=== PATIENT | female | born 1970 | race Caucasian/White ===

== ENCOUNTER 2017-02-07 08:34 | Emergency (ER) | payer BC ==
[2017-02-07] MEDS ORDERED: Nitroglycerin TAB 0.4 MG* 0.4 MG TAB SL ONE (09:06)
[2017-02-07] MEDS ORDERED: NS 0.9% 1000 ML* 1,000 ML IV SCH (09:15)
--- NOTE | 2017-02-07 09:30 | RAD ---
INDICATION: Chest pain COMPARISON: None TECHNIQUE: An AP portable view obtained at 0910 hours is submitted. FINDINGS: Bones/Soft Tissues: There are no acute bony findings. Cardiomediastinal: The cardiomediastinal silhouette is normal. Lungs: There are no infiltrates. Pleura: There are no pleural effusions. Other: None IMPRESSION: NO ACTIVE DISEASE
[2017-02-07 09:35] LABS: Hematocrit 46 % (35-47); Hemoglobin 15.4 g/dl (12.0-16.0); Mean Corpuscular HGB Conc 34 g/dl (31-36); Mean Corpuscular Hemoglobin 30 pg (27-31); Mean Corpuscular Volume 89 fL (80-97); Mean Platelet Volume 9 um3 (7.4-10.4); Red Blood Count 5.16 10^6/ul (4.0-5.4); Red Cell Distribution Width 13 % (10.5-15); White Blood Count 5.8 10^3/ul (3.5-10.8)
[2017-02-07 09:57] LABS: ALT 20 U/L (7-52); Albumin 4.9 g/dL (3.2-5.2); Alkaline Phosphatase 73 U/L (34-104); BUN/Creatinine Ratio 25.6 (8-20); Blood Urea Nitrogen 21 mg/dL (6-24); C Reactive Protein < 1.00 mg/L (< 5.00); CO2 Carbon Dioxide 25 mmol/L (22-32); Calcium 9.8 mg/dL (8.6-10.3); Chloride 104 mmol/L (101-111); Creatine Kinase 95 U/L (10-223); EGFR African American 96.5 (>60); EGFR Non-African American 75.1 (>60); Glucose 103 mg/dL (70-100); Lipase 19 U/L (11.0-82.0); Sodium 136 mmol/L (133-145); Total Protein 7.9 g/dL (6.4-8.9)
[2017-02-07 10:24] LABS: TSH (Thyroid Stimulating Horm) 2.67 mcIU/mL (0.34-5.60)
[2017-02-07 10:40] LABS: Urine Bilirubin Negative (Negative); Urine Glucose Negative (Negative); Urine Nitrite Negative (Negative)
--- NOTE | 2017-02-07 12:57 | ED ---
Citlali Roach Claudia, scribed for Aryan Perez MD on 02/07/17 at 0910 . HPI Chest Pain - HPI Summary HPI Summary: 46 year old female presents to the ED with mid-sternal, left anterior CP. Pt notes sudden onset this am around 800am when she was lifting recycling. Pt denies nausea, SOB, skin diaphoresis, fever, chills, abd pain. Pt notes the pain as 5/10. Pt is unable to describe the character of the pain. Pt notes deep breaths aggravate the pain and there is no alleviating factors. She notes that she is unable to make the pain worse by pressing on her chest. She denies calf pain and PMHx of DVT or PE. Pt also admits to chronic LEWIS which she had this am and she took 2 aspirins, pt also notes chronic tinnitus which has gotten louder within the last week. She notes PMHx of IBS and takes peppermint oil daily which she took this am. She also notes HTN during when she was 32 years old but no Rx for HTN since due to adverse rxn/allergies. Pt notes no Dx of HTN. Pt notes she has adverse xn to lots of medications which gives her a sense of fear. - History of Current Complaint Chief Complaint: EDChestPainROMI Time Seen by Provider: 02/07/17 08:49 Hx Obtained From: Patient Onset/Duration: Started Minutes Ago - about 800am today, Still Present Timing: Constant Pain Intensity: 5 Pain Scale Used: 0-10 Numeric Chest Pain Location: Mid Sternal, Left Anterior Character: Other: - unable to describe Aggravating Factor(s): Deep Breaths Alleviating Factor(s): Nothing Associated Signs and Symptoms: Positive: Chest Pain. Negative: Shortness of Breath, Fever, Chills, Diaphoresis, Nausea, Abdominal Pain - Allergy/Home Medications Allergies/Adverse Reactions: Allergies Allergy/AdvReac Type Severity Reaction Status Date / Time Cheese Allergy MIGRAINES Verified 07/18/16 09:13 Ibuprofen Allergy Nausea Verified 07/18/16 09:13 ALL BLOOD PRESSURE MEDICATION Allergy Unknown Uncoded 07/18/16 09:13 Reaction Details ARTIFICIAL HORMONES Allergy MIGRAINES Uncoded 07/18/16 09:13 BLOOD PRESSURE MED Allergy Palpitation Uncoded 07/18/16 09:13 s CHEMICALS Allergy Unknown Uncoded 07/18/16 09:13 Reaction Details PMH/Surg Hx/FS Hx/Imm Hx Previously Healthy: Yes Endocrine/Hematology History: Denies: Hx Diabetes Cardiovascular History: Reports: Hx Hypertension - ELEVATED WHEN IN A HEALTH CARE SETTING-ANXIETY INCREASES WHEN TAKING BP- Denies: Hx Pacemaker/ICD GI History: Reports: Hx Irritable Bowel - ON PEPPERMINT FOR History: Denies: Hx Renal Disease Musculoskeletal History: Reports: Hx Arthritis - HAND, Hx Tendonitis - HX OF Sensory History: Denies: Hx Contacts or Glasses, Hx Hearing Aid Opthamlomology History: Denies: Hx Contacts or Glasses Neurological History: Reports: Hx Migraine - INDUCED BY HORMONES-TREATS WITH TYLENOL AND CODEINE PRN Psychiatric History: Reports: Hx Anxiety - ONLY WHEN BLOOD PRESSURE BEING TAKEN Denies: Hx Panic Disorder - Cancer History Hx Chemotherapy: No Hx Radiation Therapy: No - Surgical History Surgery Procedure, Year, and Place: 2 COLONOSCOPIES. ENDOSCOPY Hx Anesthesia Reactions: No Infectious Disease History: No Infectious Disease History: Denies: Traveled Outside the [place] in Last 30 Days - Family History Family History: NO FHX OF BREAST CA - Social History Occupation: Unemployed Lives: With Family Alcohol Use: None Substance Use Type: Reports: None Smoking Status (MU): Former Smoker Amount Used/How Often: ? PPD X 9 YEARS Review of Systems Constitutional: Negative Negative: Fever, Chills, Skin Diaphoresis Eyes: Negative ENT: Negative Positive: Chest Pain Negative: Shortness Of Breath Negative: Abdominal Pain, Nausea Genitourinary: Negative Musculoskeletal: Negative Skin: Negative Neurological: Negative Psychological: Normal All Other Systems Reviewed And Are Negative: Yes Physical Exam Triage Information Reviewed: Yes Vital Signs On Initial Exam: Initial Vitals Temp Pulse Resp BP Pulse Ox 96.4 F 105 20 173/105 100 02/07/17 08:35 02/07/17 08:35 02/07/17 08:35 02/07/17 08:35 02/07/17 08:35 Vital Signs Reviewed: Yes Appearance: Positive: Well-Appearing, No Pain Distress Skin: Positive: Warm, Skin Color Reflects Adequate Perfusion, Dry Head/Face: Positive: Normal Head/Face Inspection Eyes: Positive: EOMI, CHANTALE ENT: Positive: Normal ENT inspection Neck: Positive: Supple, Nontender Respiratory/Lung Sounds: Positive: Clear to Auscultation, Breath Sounds Present Cardiovascular: Positive: RRR Abdomen Description: Positive: Nontender, Soft Musculoskeletal: Positive: Normal, Strength/ROM Intact Neurological: Positive: Normal, Sensory/Motor Intact, Alert, Oriented to Person Place, Time Psychiatric: Positive: Anxious - [place] Coma Scale Coma Scale Total: 15 Diagnostics - Vital Signs Vital Signs Temp Pulse Resp BP Pulse Ox 02/07/17 08:51 82 14 170/107 100 02/07/17 08:46 96.4 F 76 18 170/107 100 02/07/17 08:35 96.4 F 105 20 173/105 100 - Laboratory Lab Results: Lab Results 02/07/17 02/07/17 02/07/17 Range/Units 09:20 09:20 09:20 WBC 5.8 (3.5-10.8) 10^3/ul RBC 5.16 (4.0-5.4) 10^6/ul Hgb 15.4 (12.0-16.0) g/dl Hct 46 (35-47) % MCV 89 (80-97) fL MCH 30 (27-31) pg MCHC 34 (31-36) g/dl RDW 13 (10.5-15) % Plt Count 182 (150-450) 10^3/ul MPV 9 (7.4-10.4) um3 Neut % (Auto) 66.6 (38-83) % Lymph % (Auto) 24.0 L (25-47) % [place] % (Auto) 6.9 (1-9) % Eos % (Auto) 1.8 (0-6) % Baso % (Auto) 0.7 (0-2) % Absolute Neuts (auto) 3.9 (1.5-7.7) 10^3/ul Absolute Lymphs (auto) 1.4 (1.0-4.8) 10^3/ul Absolute Monos (auto) 0.4 (0-0.8) 10^3/ul Absolute Eos (auto) 0.1 (0-0.6) 10^3/ul Absolute Basos (auto) 0 (0-0.2) 10^3/ul Absolute Nucleated RBC 0.01 10^3/ul Nucleated RBC % 0.1 INR (Anticoag Therapy) 0.81 L (0.89-1.11) APTT 27.9 (26.0-36.3) seconds D-Dimer, Quantitative < 200 (Less Than 230) ng/mL Sodium 136 (133-145) mmol/L Potassium TNP Chloride 104 (101-111) mmol/L Carbon Dioxide 25 (22-32) mmol/L Anion Gap TNP BUN 21 (6-24) mg/dL Creatinine 0.82 (0.51-0.95) mg/dL Est GFR ( Amer) 96.5 (>60) Est GFR (Non-Af Amer) 75.1 (>60) BUN/Creatinine Ratio 25.6 H (8-20) Glucose 103 H (70-100) mg/dL Lactic Acid (0.5-2.0) mmol/L Calcium 9.8 (8.6-10.3) mg/dL Magnesium TNP Total Bilirubin 0.30 (0.2-1.0) mg/dL AST TNP ALT 20 (7-52) U/L Alkaline Phosphatase 73 (34-104) U/L Total Creatine Kinase 95 (10-223) U/L CK-MB (CK-2) 1.5 (0.6-6.3) ng/mL Troponin I 0.00 (<0.04) ng/mL C-Reactive Protein < 1.00 (< 5.00) mg/L Total Protein 7.9 (6.4-8.9) g/dL Albumin 4.9 (3.2-5.2) g/dL Globulin 3.0 (2-4) g/dL Albumin/Globulin Ratio 1.6 (1-3) Lipase 19 (11.0-82.0) U/L TSH 2.67 (0.34-5.60) mcIU/mL Beta HCG, Quant 6.29 mIU/mL Urine Color Urine Appearance Urine pH (5-9) Ur Specific [place] (1.010-1.030) Urine Protein (Negative) Urine Ketones (Negative) Urine Blood (Negative) Urine Nitrate (Negative) Urine Bilirubin (Negative) Urine Urobilinogen (Negative) Ur Leukocyte Esterase (Negative) Urine Glucose (Negative) 02/07/17 02/07/17 02/07/17 Range/Units 09:20 10:16 10:16 WBC (3.5-10.8) 10^3/ul RBC (4.0-5.4) 10^6/ul Hgb (12.0-16.0) g/dl Hct (35-47) % MCV (80-97) fL MCH (27-31) pg MCHC (31-36) g/dl RDW (10.5-15) % Plt Count (150-450) 10^3/ul MPV (7.4-10.4) um3 Neut % (Auto) (38-83) % Lymph % (Auto) (25-47) % [place] % (Auto) (1-9) % Eos % (Auto) (0-6) % Baso % (Auto) (0-2) % Absolute Neuts (auto) (1.5-7.7) 10^3/ul Absolute Lymphs (auto) (1.0-4.8) 10^3/ul Absolute Monos (auto) (0-0.8) 10^3/ul Absolute Eos (auto) (0-0.6) 10^3/ul Absolute Basos (auto) (0-0.2) 10^3/ul Absolute Nucleated RBC 10^3/ul Nucleated RBC % INR (Anticoag Therapy) (0.89-1.11) APTT (26.0-36.3) seconds D-Dimer, Quantitative (Less Than 230) ng/mL Sodium (133-145) mmol/L Potassium 3.8 Chloride (101-111) mmol/L Carbon Dioxide (22-32) mmol/L Anion Gap BUN (6-24) mg/dL Creatinine (0.51-0.95) mg/dL Est GFR ( Amer) (>60) Est GFR (Non-Af Amer) (>60) BUN/Creatinine Ratio (8-20) Glucose (70-100) mg/dL Lactic Acid 0.7 (0.5-2.0) mmol/L Calcium (8.6-10.3) mg/dL Magnesium Total Bilirubin (0.2-1.0) mg/dL AST 16 ALT (7-52) U/L Alkaline Phosphatase (34-104) U/L Total Creatine Kinase (10-223) U/L CK-MB (CK-2) (0.6-6.3) ng/mL Troponin I (<0.04) ng/mL C-Reactive Protein (< 5.00) mg/L Total Protein (6.4-8.9) g/dL Albumin (3.2-5.2) g/dL Globulin (2-4) g/dL Albumin/Globulin Ratio (1-3) Lipase (11.0-82.0) U/L TSH (0.34-5.60) mcIU/mL Beta HCG, Quant mIU/mL Urine Color Yellow Urine Appearance Clear Urine pH 5.0 (5-9) Ur Specific [place] 1.006 L (1.010-1.030) Urine Protein Negative (Negative) Urine Ketones Negative (Negative) Urine Blood Negative (Negative) Urine Nitrate Negative (Negative) Urine Bilirubin Negative (Negative) Urine Urobilinogen Negative (Negative) Ur Leukocyte Esterase Negative (Negative) Urine Glucose Negative (Negative) 02/07/17 Range/Units 12:20 WBC (3.5-10.8) 10^3/ul RBC (4.0-5.4) 10^6/ul Hgb (12.0-16.0) g/dl Hct (35-47) % MCV (80-97) fL MCH (27-31) pg MCHC (31-36) g/dl RDW (10.5-15) % Plt Count (150-450) 10^3/ul MPV (7.4-10.4) um3 Neut % (Auto) (38-83) % Lymph % (Auto) (25-47) % [place] % (Auto) (1-9) % Eos % (Auto) (0-6) % Baso % (Auto) (0-2) % Absolute Neuts (auto) (1.5-7.7) 10^3/ul Absolute Lymphs (auto) (1.0-4.8) 10^3/ul Absolute Monos (auto) (0-0.8) 10^3/ul Absolute Eos (auto) (0-0.6) 10^3/ul Absolute Basos (auto) (0-0.2) 10^3/ul Absolute Nucleated RBC 10^3/ul Nucleated RBC % INR (Anticoag Therapy) (0.89-1.11) APTT (26.0-36.3) seconds D-Dimer, Quantitative (Less Than 230) ng/mL Sodium (133-145) mmol/L Potassium Chloride (101-111) mmol/L Carbon Dioxide (22-32) mmol/L Anion Gap BUN (6-24) mg/dL Creatinine (0.51-0.95) mg/dL Est GFR ( Amer) (>60) Est GFR (Non-Af Amer) (>60) BUN/Creatinine Ratio (8-20) Glucose (70-100) mg/dL Lactic Acid (0.5-2.0) mmol/L Calcium (8.6-10.3) mg/dL Magnesium Total Bilirubin (0.2-1.0) mg/dL AST ALT (7-52) U/L Alkaline Phosphatase (34-104) U/L Total Creatine Kinase (10-223) U/L CK-MB (CK-2) (0.6-6.3) ng/mL Troponin I 0.00 (<0.04) ng/mL C-Reactive Protein (< 5.00) mg/L Total Protein (6.4-8.9) g/dL Albumin (3.2-5.2) g/dL Globulin (2-4) g/dL Albumin/Globulin Ratio (1-3) Lipase (11.0-82.0) U/L TSH (0.34-5.60) mcIU/mL Beta HCG, Quant mIU/mL Urine Color Urine Appearance Urine pH (5-9) Ur Specific [place] (1.010-1.030) Urine Protein (Negative) Urine Ketones (Negative) Urine Blood (Negative) Urine Nitrate (Negative) Urine Bilirubin (Negative) Urine Urobilinogen (Negative) Ur Leukocyte Esterase (Negative) Urine Glucose (Negative) Result Diagrams: 02/07/17 09:20 02/07/17 10:16 Lab Statement: Any lab studies that have been ordered have been reviewed, and results considered in the medical decision making process. - Radiology CXR Xray Interpretation: No Acute Changes - NO ACTIVE DISEASE Radiology Interpretation Completed By: Radiologist - EKG 843 Cardiac Rate: NL EKG Rhythm: Sinus Rhythm - 71 BEATS/MIN Ectopy: None EKG Interpretation: FLIPPED T WAVES IN avR and avL Re-Evaluation - Re-Evaluation 1 Re-Evaluation Time: 12:33 Comment: Discussed lab results and imaging with the pt and family. Also discussed further care of plan. Chest Pain Course/Dx - Course Assessment/Plan: WELL IN ED. DISCUSSED RESULTS WITH PATIENT. CHEST PAIN IS SPLINTING, NL EKG. DISCUSSED REPEAT TROPONIN WITH PATIENT. 4 HOUR TROPONIN NEGATIVE, DISCHARGE HOME STABLE. - Diagnoses Provider Diagnoses: Chest pain, Hypertension Discharge - Discharge Plan Condition: Stable Disposition: HOME Patient Education Materials: Chest Pain (ED), Hypertension (ED) Referrals: Saida Ayala MD [Primary Care Provider] - Johnny Mckenna MD [Medical Doctor] - Additional Instructions: FOLLOW UP WITH YOUR PRIMARY CARE DOCTOR AND TRUCK REPAIR SERVICE ESTIMATOR. RETURN TO THE EMERGENCY DEPARTMENT FOR ANY WORSENING OF YOUR CONDITION; PAIN, SHORTNESS OF BREATH, YOU FEEL ILL OR QUESTIONS OR CONCERNS. The documentation as recorded by the Citlali melo Claudia accurately reflects the service I personally performed and the decisions made by me, Aryan Perez MD.
[2017-02-07 13:19] VITALS: BP 153/89
== END 2017-02-07 13:18 | disposition home or self-care (01) ==
LOC: ED 08:34
DX: R07.9 Chest pain, unspecified (principal); I10 Essential (primary) hypertension; Z87.891 Personal history of nicotine dependence; K58.9 Irritable bowel syndrome, unspecified; Z86.718 Personal history of other venous thrombosis and embolism
CPT/HCPCS: 36415; 71010; 80053; 81003; 82550; 82553; 83605; 83690; 84443; 84484; 84702; 85025; 85379; 85610; 85730; 86140; 93005; 96360; 99283; A9270-GY

== ENCOUNTER 2017-02-11 14:28 | Emergency (ER) | payer BC ==
[2017-02-11 14:40] VITALS: BP 187/123
--- NOTE | 2017-02-11 15:52 | UC ---
General HPI - HPI Summary HPI Summary: The patient comes in today for: 1. Heart palpitations, "rhythm is off" "I know it is from the medication." Onset: 2 days. Palliative/provocative: Taking the amlodipine makes it worse. She does not think her symptoms are any better now that she has stopped the medication. Quality: Palpitations Region: heart Severity: Chest tightness, no radiation. Time: Constant Associated symptoms: Event: She has had a problem with high blood pressure noticed during 13 years ago. Since then she has had to have blood pressure medications since. However, she was not able to tolerate many medications. She was started on amlodipine at 2.5 mg 2 days ago. She took the first pill 2 days ago and she felt "very tired." She noticed yesterday her heart palpitations and an irregular rhythm. Her last pill was 6PM yesterday. Nausea: None Dyspnea: NOne. Sweating: None. Home blood pressure: Not taken. She has no home cuff at home. She states that at one point in her history, she was told that if she takes blood pressure medications, "they will kill you." She states that she gets very anxious around blood pressure machines as they always show high blood pressure readings which states that she should be on medications. She states that when she is off medications and at home, she feels fine. * - History of Current Complaint Chief Complaint: UCCardiac Stated Complaint: REACTION TO MED Time Seen by Provider: 02/11/17 15:32 Hx Obtained From: Patient - Allergy/Home Medications Allergies/Adverse Reactions: Allergies Allergy/AdvReac Type Severity Reaction Status Date / Time Cheese Allergy MIGRAINES Verified 07/18/16 09:13 Ibuprofen Allergy Nausea Verified 07/18/16 09:13 ALL BLOOD PRESSURE MEDICATION Allergy Unknown Uncoded 07/18/16 09:13 Reaction Details ARTIFICIAL HORMONES Allergy MIGRAINES Uncoded 07/18/16 09:13 BLOOD PRESSURE MED Allergy Palpitation Uncoded 07/18/16 09:13 s CHEMICALS Allergy Unknown Uncoded 07/18/16 09:13 Reaction Details PMH/Surg Hx/FS Hx/Imm Hx Previously Healthy: No Endocrine History Of: Denies: Diabetes, Thyroid Disease, Hyperthyroidism, Hypothyroidism, Dyslipidemia Cardiovascular History Of: Reports: Cardiac Disorders - "Some sort of heart valve disorder" but her echo stated (-)., Hypertension - ELEVATED WHEN IN A HEALTH CARE SETTING-ANXIETY INCREASES WHEN TAKING BP- Denies: Pacemaker/ICD, Myocardial Infarction, Congestive Heart Failure, Atrial Fibrillation, Deep Vein Thrombosis, Bleeding Disorders Respiratory History Of: Denies: COPD, Asthma, Bronchitis, Pneumonia, Pulmonary Embolism GI/ History Of: Denies: Gastroesophageal Reflux, Ulcer, Gastrointestinal Bleed, Gall Bladder Disease, Kidney Stones, Diverticulitis, Renal Disease, Urosepsis Neurological History Of: Reports: Migraine - INDUCED BY HORMONES-TREATS WITH TYLENOL AND CODEINE PRN Denies: TIA, CVA, Dementia, Seizures Psychological History Of: Reports: Anxiety - ONLY WHEN BLOOD PRESSURE BEING TAKEN, Post Traumatic Stress Disorder - RElated to BP medications. Denies: Depression, Bipolar Disorder, Schizophrenia Cancer History Of: Denies: Lung Cancer, Colorectal Cancer, Breast Cancer, Prostate Cancer, Cervical Cancer Other History Of: Negative For: HIV, Hepatitis B, Hepatitis C, Anticoagulant Therapy - Surgical History Surgical History: Yes Surgery Procedure, Year, and Place: 2 COLONOSCOPIES. ENDOSCOPY - Family History Known Family History: Positive: Hypertension, Renal Disease - Mother has kidney disease but also Lupus Family History: NO FHX OF BREAST CA - Social History Occupation: Unemployed Alcohol Use: None Substance Use Type: None Smoking Status (MU): Former Smoker Amount Used/How Often: ? PPD X 9 YEARS When Did the Patient Quit Smoking/Using Tobacco: 17 YEARS AGO Review of Systems Constitutional: Negative Skin: Negative Eyes: Negative ENT: Negative Respiratory: Negative Cardiovascular: Negative, Chest Pain Gastrointestinal: Negative Genitourinary: Negative All Other Systems Reviewed And Are Negative: Yes Physical Exam Triage Information Reviewed: Yes Appearance: Well-Appearing, No Pain Distress, Other: - she appears anxious and tearful at times. Vital Signs: Initial Vital Signs Pulse 85 02/11/17 14:34 Resp 18 02/11/17 14:34 BP 187/123 02/11/17 14:34 Pulse Ox 100 02/11/17 14:34 Eyes: Positive: Conjunctiva Clear. Negative: Discharge ENT: Positive: Hearing grossly normal. Negative: Pharyngeal erythema, Nasal congestion, Nasal drainage, TM bulging, TM dull, TM red, Tonsillar swelling, Tonsillar exudate Dental: Negative: Gross Decay/Caries @, Dental Fracture @ Neck: Positive: Supple, Nontender, No Lymphadenopathy. Negative: Nuchal Rigidity Respiratory: Positive: Lungs clear, No respiratory distress, No accessory muscle use. Negative: Crackles, Wheezing Cardiovascular: Positive: RRR, No Murmur Abdomen Description: Positive: Nontender, No Organomegaly, Soft, Other: - No bruits.. Negative: Distended, Guarding Musculoskeletal: Positive: Strength Intact, ROM Intact, No Edema Neurological: Positive: Alert, Muscle Tone Normal Psychological: Positive: Normal Response To Family, Age Appropriate Behavior, Consolable Skin: Negative: rashes, breakdown Course/Dx - Course Course Of Treatment: The patient was told that her blood pressure is very high and that I recommended that it be re-taken. However, she did not want that done. She was also told that in terms of her chest tightness, I am not able to rule out other possible serious causes of her chest pain. The patient was told that I don't know for sure what is causing her chest tightness. The patient was also told that there are many causes for chest tightness--. some which are benign and some which are life-threatening. Furthermore, it was. mentioned that the life-threatening causes of chest tightness can present with. minimal, atypical, or even no symptoms. Becasue of these facts and the fact. that we don't have here all the testing methods commonly used to assess chest tightness , and their timely resuts, my recommendation is for the patient to go to. the closest ([facility] [place]) ER. She said that she was not going to do that. - Differential Dx - Multi-Symptom Provider Diagnoses: high blood pressure. chest tightness Discharge - Discharge Plan Condition: Stable Disposition: HOME Patient Education Materials: Chest Pain (ED), Hypertension (ED) Referrals: Saida Ayala MD [Primary Care Provider] - As Soon As Possible Additional Instructions: If you are not going to the ER for further evaluation, please reconsider if you feel worse. Please see your primary care provider or previous specialists as soon as you can to address the two problems we discussed today (chest tightness and high blood pressure).
== END 2017-02-11 17:12 | disposition home or self-care (01) ==
LOC: UCEAST 14:28
DX: I10 Essential (primary) hypertension (principal); R07.9 Chest pain, unspecified; G43.909 Migraine, unspecified, not intractable, without status migrainosus; F41.9 Anxiety disorder, unspecified; Z87.891 Personal history of nicotine dependence; Z88.6 Allergy status to analgesic agent
CPT/HCPCS: 93005; 99211; G0463

== ENCOUNTER 2018-07-05 18:46 | Emergency (ER) | payer BC ==
--- OUTSIDE RECORDS SUMMARY | 2018-07-05 18:52 | XMS REPORT ---
:1970 External Reference #:[id number] Author Organization [facility] Address [address] [place] [place] [address] Phone [phone] Care Team Providers Name Role Phone Saida Ayala MD Primary Care Physician Unavailable Payers Type Date Identification Numbers Payment Provider Subscriber Commercial Effective: Policy Number: [id number] [facility] Estuardo Kendrick 2011 PayID: [id number] [address] [place] [address] Workers Compensation Onset: 2015 PayID: [id number] Luis Slaughter Problems Date Description Provider Status Onset: 12/06/2011 Disorder of joint of ankle and/or foot Saida Ayala M.D. Active Note: chroninc instability of L ankle joint /wears a brace Onset: 11/26/2013 Essential hypertension Johnny Mckenna M.D. Active Onset: 11/26/2013 Palpitations Johnny Mckenna M.D. Active Onset: 11/26/2013 Anxiety state Johnny Mckenna M.D. Active Onset: 12/23/2013 Mitral valve disorder [facility] Schedule Active Onset: 12/30/2015 Patellofemoral syndrome of Saida Ayala M.D. Active bilateral knees Onset: 12/30/2015 Osteoarthritis of knee Saida Ayala M.D. Active Onset: 07/28/2016 Chondromalacia of patella Syed Aburto MD Active Onset: 07/28/2016 Derangement of knee Syed Aburto MD Active Onset: 10/07/2016 Localized, primary osteoarthritis Syed Aburto MD Active Onset: 02/24/2017 Knee joint effusion Syed Aburto MD Active Onset: 03/10/2017 Localized superficial swelling of Syed Aburto MD Active skin Family History Date Family Member(s) Problem(s) Comments Father Unknown alcoholism Mother 66 Onset: (03/28/2017) Mother Hypertension alive age 69 2017 (age 69 Years) Onset: (age 66 Years) Mother Lupus Mother Kidney Disease Children 1 First Daughter 13 Onset: (03/28/2017) Siblings 1 no known CAD brother alive well 2017 First Brother 43 Social History Type Date Description Comments Marital Status Lives With Spouse Lives With 13 Years Daughter 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 Cigarette Use Former Cigarette Smoker ETOH Use 12/24/2015 Denies alcohol use Smoking Patient is a former smoker Recreational Drug Use Denies Drug Use Daily Caffeine Does Not Consume Caffeine Exercise Type/Frequency Exercises regularly Condom Use Always STD's No STD History General Hx Text believes in kraus yarsanism vegetarian since age 18 Sexual Hx text has tried IUD in the past ( gave her migraines ) states she does not do well with medications , prefers to use condoms , thinks she is not much fertile at this age Allergies, Adverse Reactions, Alerts Date Description Reaction Status Severity Comments 12/06/2011 Ibuprofen active 12/06/2011 Blood Pressure Medications headaches, stomach active problems, heart palpitations 02/28/2017 Calcium Channel Blockers active Severe 03/28/2017 Oral Contraceptives headaches active Medications Medication Date Status Form Strength Qnty SIG Indications Ordering Provider Fluticasone 03/16/ Active Suspension 50mcg/Act 16gm 1 sprays 461.9 Saida Propionate 2016 each Ayala, nostril qd M.D. prn Voltaren 12/04/ Active Gel 1% 1tube apply to M22.2x1 Rashi 2016 the knee Piyush, as needed M.D. for pain, maximum 3 times a day Peppermint Oil 0000/ Active Capsules 2 tablets Unknown 0000 daily up to 4x per day prn for IBS Andreina Hip 00/00/ Active 2 tablets Unknown 0000 daily Calcium 00/00/ Active Tablets 1 tablet Unknown Magnesium Zinc 0000 daily Vitamin B 0000/ Active Tablets 1 by mouth Unknown Complex 0000 every day L- Theanine 0000/ Active Powder 1 tablet Unknown 0000 daily Losartan 02/20/ Hx Tablets 25mg 60tab Not Taking I10 Saida Potassium 2016 Jamie 05/03/ M.D. 2017 Hydroxyzine 02/20/ Hx Tablets 25mg 30tab (has never F43.29 Saida HCL 2016 taken) Jamie 05/03/ M.D. 2016 Amlodipine 02/09/ Hx Tablets 2.5mg 30tab Not Taking I10 Saida Besylate 2016 Jamie 02/20/ M.D. 2016 Oxycodone-Acet 07/28/ Hx Tablets 5-325mg 42tab 1-2 tabs M22.42 Zaneb aminophen 2015 - s po q 6 hrs MD Lamonte 01/06/ prn pain 2016 Not Taking Oxycodone-Acet 06/23/ Hx Tablets 5-325mg 30tab 1by mouth M22.2x2 Nicky aminophen 2016 - s every 4-6 Bordoni, 07/28/ hours as [employer] 2016 needed for pain. Acetaminophen- 12/23/ Hx Tablets 300-15mg 20tab 1 - 2 by 461.9 Anyi Melo Codeine #2 2016 - s mouth as Zuleima Rider, 01/06/ needed MCb,FACP 2017 migraine headaches Amoxicillin/Cl 11/30/ Hx Tablets 875-125mg 20tab 1 tablet J01.90 Tamir avulanate 2015 - s by mouth MAYLIN Shea Potassium 12/10/ twice a 2015 day x's 10 days Nystatin 11/30/ Hx Suspension [id number] 225ml swish and B37.0 Tamir 2016 - t/ML swallow MAYLIN Shea 18/ 5ml four 2015 times a day x's 10 days Amoxicillin/Cl 01/30/ Hx Tablets 875-125mg 20tab take one 461.9 Bradly avulanate 2014 - s tablet q12 MAYLIN Joyner Potassium 11/12/ hours for 2016 10 days Fluticasone 01/30/ Hx Suspension 50mcg/Act 16gm 2 sprays 461.9 Bradly Propionate 2014 - each MAYLIN Joyner 11/12/ nostril qd 2016 or 2 weeks and then one spray each nostril. Amoxicillin/Cl 04/21/ Hx Tablets 875-125mg 20tab one tablet 461.9 Jailene avulanate 2013 - s by mouth Varn, N.P. Potassium 05/01/ twice 2014 daily for 10 days Acetaminophen- 04/21/ Hx Tablets 300-15mg 20tab 1 - 2 by 461.9 Jailene Codeine #2 2014 - s mouth as Varn, N.P. needed 2015 migraine headaches Nasonex 07/06/ Hx Suspension 50mcg/Act 17g 2 sprays 477.9 Luz 2012 - in each Reuben, 04/11/ nostril N.P. 2013 once daily Orthotics 12/14/ Hx 1Pair 1 pair Saida 2011 - Jamie, 11/12/ M.Zuleima 2015 Echinacea / Hx Unknown 0000 - 2015 Terrazas Seal / Hx Unknown Extract 0000 - 2015 Lansoprazole / Hx Capsules DR 15mg 30cap 1 by mouth Jailene 0000 - s every day Varn, N.P. 2016 Vitamin B-12 / Hx Tablets ER 1000mcg 1 by mouth Unknown ER 0000 - every day 2016 Medications Administered in Office Medication Date Status Form Strength Qnty SIG Indications Ordering Provider Injection Administered Injection Zaneb Hyaluronan Or MD Gogo Mclean, Euflexxa Per Dose Injection Administered Injection Zaneb Hyaluronan Or Blaine Aburto MD Derivative, Euflexxa Per Dose Injection Administered Injection Zaneb Hyaluronan Or MD Gogo Mclean, Euflexxa Per Dose Injection Administered Injection Zaneb Hyaluronan Or MD Gogo Mclean, Euflexxa Per Dose Injection Administered Injection Zaneb Hyaluronan Or MD Gogo Mclean, Euflexxa Per Dose Injection Administered Injection Zaneb Hyaluronan Or MD Gogo Mclean, Euflexxa Per Dose Injection Administered Injection Zaneb Hyaluronan Or MD Gogo Alcantara, Euflexxa Per Dose Injection Administered Injection Zaneb Hyaluronan Or Janessa Aburto MD Derivative, Euflexxa Per Dose Injection Administered Injection Zaneb Hyaluronan Or 017 Darleenseen, MD Derivative, Euflexxa Per Dose Injection Administered Injection Zaneb Hyaluronan Or Janessa Aburto MD Derivative, Euflexxa Per Dose Injection Administered Injection Zaneb Hyaluronan Or Janessa Aburto MD Derivative, Euflexxa Per Dose Injection Administered Injection Zaneb Hyaluronan Or Janessa Aburto MD Derivative, Euflexxa Per Dose Injection Administered Injection Zaneb Hyaluronan Or Janessa Aburto MD Derivative, Euflexxa Per Dose Injection Administered Injection Zaneb Hyaluronan Or Janesas Aburto MD Derivative, Euflexxa Per Dose Injection Administered Injection Zaneb Hyaluronan Or Janessa Aburto MD Derivative, Euflexxa Per Dose Injection Administered Injection Zaneb Hyaluronan Or Janessa Aburto MD Derivative, Euflexxa Per Dose Injection Administered Injection Zaneb Hyaluronan Or Janessa Aburto MD Derivative, Euflexxa Per Dose Injection Administered Injection Zaneb Hyaluronan Or Janessa Aburto MD Derivative, Euflexxa Per Dose Injection Administered Injection Zaneb Hyaluronan Or Janessa Aburto MD Derivative, Euflexxa Per Dose Depomedrol Administered Injection Zulay 40MG SANDRA Mullins Depomedrol Administered Injection Zulay 40MG 016 SANDRA Parker Immunizations CPT Code Status Date Vaccine Lot # [id number] Given 10/23/2010 Tdap - Tetanus/Diptheria/Acellular Pertussis [id number] Refused 07/29/2013 Flu Vaccine Split Virus Preservative Free For Indiv 3Yr Older [id number] Refused 07/06/2012 Fluzone Vaccine Vital Signs Date Vital Result Comment 07/04/2018 Height 65.5 inches 5'5.50" Weight 149.00 lb Heart Rate 59 /min O2 % BldC Oximetry 99 % BMI (Body Mass Index) 24.4 kg/m2 12/21/2017 Height 65.5 inches 5'5.50" Weight 165.00 lb Respiratory Rate 18 /min Pain Level 2 BMI (Body Mass Index) 27.0 kg/m2 12/14/2017 Height 65.5 inches 5'5.50" Pain Level 2 12/07/2017 Height 65.5 inches 5'5.50" Respiratory Rate 16 /min Pain Level 2 B/L knees 11/10/2017 Height 65.5 inches 5'5.50" Weight 165.00 lb Respiratory Rate 18 /min Pain Level 0 BMI (Body Mass Index) 27.0 kg/m2 06/27/2017 Height 65.5 inches 5'5.50" Weight 165.00 lb Heart Rate 48 /min Respiratory Rate 15 /min Body Temperature 97.8 F Pain Level 0 BMI (Body Mass Index) 27.0 kg/m2 06/20/2017 Height 65.5 inches 5'5.50" Weight 165.00 lb Respiratory Rate 16 /min Body Temperature 96.8 F BMI (Body Mass Index) 27.0 kg/m2 06/13/2017 Height 65.5 inches 5'5.50" Weight 165.00 lb Body Temperature 98.3 F Pain Level 4 BMI (Body Mass Index) 27.0 kg/m2 05/25/2017 Height 65.5 inches 5'5.50" Weight 165.00 lb Heart Rate 72 /min Body Temperature 97.8 F Pain Level 3 BMI (Body Mass Index) 27.0 kg/m2 05/03/2017 Weight 165.00 lb Heart Rate 70 /min O2 % BldC Oximetry 98 % 04/11/2017 Weight 165.25 lb Heart Rate 78 /min Body Temperature 97.4 F O2 % BldC Oximetry 99 % 03/28/2017 Height 65.5 inches 5'5.50" Weight 162.75 lb w/shoes Heart Rate 80 /min BMI (Body Mass Index) 26.7 kg/m2 Ejection Fraction 55-60% Echo 12/23/13 03/27/2017 Weight 164.50 lb Heart Rate 72 /min Body Temperature 97.6 F O2 % BldC Oximetry 98 % 03/10/2017 Height 64.5 inches 5'4.50" Weight 160.00 lb Heart Rate 69 /min Respiratory Rate 16 /min Pain Level 1 BMI (Body Mass Index) 27.0 kg/m2 02/28/2017 Height 64.5 inches 5'4.50" Weight 160.75 lb Heart Rate 72 /min BMI (Body Mass Index) 27.2 kg/m2 Ejection Fraction 55% - 60% echo 12/23/13 02/24/2017 Height 64.5 inches 5'4.50" Weight 145.00 lb Heart Rate 76 /min Respiratory Rate 16 /min Body Temperature 97.3 F Pain Level 2 BMI (Body Mass Index) 24.5 kg/m2 02/20/2017 Height 65 inches 5'5" Weight 161.25 lb Heart Rate 109 /min Body Temperature 97.0 F O2 % BldC Oximetry 98 % BMI (Body Mass Index) 26.8 kg/m2 02/09/2017 Weight 159.00 lb Heart Rate 98 /min BP Systolic 170 mmHg BP Diastolic 100 mmHg Respiratory Rate 15 /min Body Temperature 97.8 F O2 % BldC Oximetry 98 % 01/17/2017 Weight 161.00 lb Heart Rate 98 /min O2 % BldC Oximetry 98 % 01/06/2017 Weight 161.00 lb Heart Rate 85 /min Body Temperature 98.3 F O2 % BldC Oximetry 98 % 11/25/2016 Height 64.5 inches 5'4.50" Weight 145.00 lb Heart Rate 60 /min Respiratory Rate 16 /min Pain Level 4 BMI (Body Mass Index) 24.5 kg/m2 11/18/2016 Height 64.5 inches 5'4.50" Weight 145.00 lb Respiratory Rate 16 /min Pain Level 5 BMI (Body Mass Index) 24.5 kg/m2 11/11/2016 Height 64.5 inches 5'4.50" Weight 145.00 lb Respiratory Rate 18 /min Pain Level 5 BMI (Body Mass Index) 24.5 kg/m2 10/07/2016 Height 64.5 inches 5'4.50" Weight 145.00 lb Respiratory Rate 16 /min Pain Level 5 BMI (Body Mass Index) 24.5 kg/m2 07/28/2016 Height 64.5 inches 5'4.50" Weight 145.00 lb Respiratory Rate 16 /min Body Temperature 97.1 F Pain Level 3 BMI (Body Mass Index) 24.5 kg/m2 06/23/2016 Height 64.5 inches 5'4.50" Weight 164.00 lb BMI (Body Mass Index) 27.7 kg/m2 03/18/2016 Height 64.5 inches 5'4.50" Weight 165.00 lb Heart Rate 60 /min Respiratory Rate 16 /min Pain Level 6 BMI (Body Mass Index) 27.9 kg/m2 02/09/2016 Height 64.5 inches 5'4.50" Weight 164.00 lb Respiratory Rate 18 /min Pain Level 7 BMI (Body Mass Index) 27.7 kg/m2 01/22/2016 Height 64.5 inches 5'4.50" Weight 164.00 lb Pain Level 1 BMI (Body Mass Index) 27.7 kg/m2 12/30/2015 Height 64.5 inches 5'4.50" Weight 164.00 lb Heart Rate 88 /min O2 % BldC Oximetry 99 % BMI (Body Mass Index) 27.7 kg/m2 12/28/2015 Height 66 inches 5'6" Weight 164.00 lb Pain Level 0 BMI (Body Mass Index) 26.5 kg/m2 12/24/2015 Height 66 inches 5'6" Weight 164.00 lb Heart Rate 118 /min Body Temperature 97.9 F O2 % BldC Oximetry 98 % BMI (Body Mass Index) 26.5 kg/m2 12/04/2015 Height 66 inches 5'6" Weight 167.00 lb Pain Level 3 BMI (Body Mass Index) 27.0 kg/m2 11/30/2015 Height 65.5 inches 5'5.50" Weight 167.00 lb Heart Rate 68 /min Body Temperature 97.9 F O2 % BldC Oximetry 98 % BMI (Body Mass Index) 27.4 kg/m2 11/12/2015 Weight 170.00 lb Heart Rate 75 /min Body Temperature 96.2 F O2 % BldC Oximetry 98 % 01/30/2015 Weight 166.50 lb Heart Rate 85 /min Body Temperature 97.6 F O2 % BldC Oximetry 98 % 10/29/2014 Height 65.5 inches 5'5.50" Weight 140.00 lb Pain Level 0 BMI (Body Mass Index) 22.9 kg/m2 08/12/2014 Height 65.5 inches 5'5.50" Weight 140.00 lb Pain Level 4 BMI (Body Mass Index) 22.9 kg/m2 04/21/2014 Height 65 inches 5'5" Weight 156.00 lb Heart Rate 72 /min Body Temperature 97.3 F BMI (Body Mass Index) 26.0 kg/m2 03/10/2014 Height 65 inches 5'5" Weight 150.00 lb Heart Rate 80 /min BMI (Body Mass Index) 25.0 kg/m2 11/26/2013 Height 65 inches 5'5" Weight 159.00 lb BMI (Body Mass Index) 26.5 kg/m2 07/29/2013 Height 65 inches 5'5" Weight 154.75 lb Heart Rate 83 /min BMI (Body Mass Index) 25.7 kg/m2 04/11/2013 Height 65 inches 5'5" Weight 148.75 lb Heart Rate 72 /min Body Temperature 98.0 F BMI (Body Mass Index) 24.8 kg/m2 07/06/2012 Height 64.75 inches 5'4.75" Weight 148.00 lb Heart Rate 88 /min Body Temperature 97.9 F BMI (Body Mass Index) 24.8 kg/m2 12/06/2011 Height 65.50 inches 5'5.50" Weight 157.00 lb Heart Rate 78 /min BMI (Body Mass Index) 25.7 kg/m2 Results Test Date Test Result H/L Range Note Laboratory test finding 03/28/2017 Magnesium 2.1 mg/dL 1.9-2.7 TSH (Thyroid Stim Horm) 2.20 mcIU/mL 0.34-5.60 CRP High Sensitivity 0.33 mg/L 1 Erythrocyte Sed Rate 11 mm/Hr 0-14 Cortisol 9.08 g/dL 2 Laboratory test finding 03/28/2017 Lyme Disease Serology Negative Negative 3 CBC Auto Diff 03/28/2017 White Blood Count 6.4 10^3/uL 3.5-10.8 Red Blood Count 4.80 10^6/uL 4.0-5.4 Hemoglobin 14.4 g/dL 12.0-16.0 Hematocrit 43 % 35-47 Mean Corpuscular Volume 89 fL 80-97 Mean Corpuscular Hemoglobin 30 pg 27-31 Mean Corpuscular HGB Conc 34 g/dL 31-36 Red Cell Distribution Width 13 % 10.5-15 Platelet Count 207 10^3/uL 150-450 Mean Platelet Volume 8 um3 7.4-10.4 Abs Neutrophils 3.5 10^3/uL 1.5-7.7 Abs Lymphocytes 2.4 10^3/uL 1.0-4.8 Abs Monocytes 0.4 10^3/uL 0-0.8 Abs Eosinophils 0.1 10^3/uL 0-0.6 Abs Basophils 0 10^3/uL 0-0.2 Abs Nucleated RBC 0 10^3/uL Granulocyte % 54.9 % 38-83 Lymphocyte % 36.9 % 25-47 Monocyte % 6.1 % 1-9 Eosinophil % 1.5 % 0-6 Basophil % 0.6 % 0-2 Nucleated Red Blood Cells % 0 Lipid Panel - [facility] 03/28/2017 Creatine Kinase(CK) 86 U/L 10-223 Lipid Profile (Trig/Chol/HDL) 03/28/2017 Triglycerides 135 mg/dL 4 Cholesterol 196 mg/dL 5 HDL Cholesterol 71.1 mg/dL 6 LDL Cholesterol 98 mg/dL 7 Comp Metabolic Panel 03/28/2017 Sodium 138 mmol/L 133-145 Potassium 4.2 mmol/L 3.5-5.0 Chloride 101 mmol/L 101-111 Co2 Carbon Dioxide 30 mmol/L 22-32 Anion Gap 7 mmol/L 2-11 Glucose 91 mg/dL 70-100 Blood Urea Nitrogen 16 mg/dL 6-24 Creatinine 0.85 mg/dL 0.51-0.95 BUN/Creatinine Ratio 18.8 8-20 Calcium 10.2 mg/dL 8.6-10.3 Total Protein 7.0 g/dL 6.4-8.9 Albumin 4.6 g/dL 3.2-5.2 Globulin 2.4 g/dL 2-4 Albumin/Globulin Ratio 1.9 1-3 Total Bilirubin 0.40 mg/dL 0.2-1.0 Alkaline Phosphatase 75 U/L 34-104 Alt 22 U/L 7-52 Ast 22 U/L 13-39 Egfr Non- 72.0 >60 Egfr 92.6 >60 8 Urinalysis Profile 02/16/2017 Urine Color Yellow Urine Appearance Clear Urine Specific Bennet 1.013 1.010-1.030 Urine pH 5.0 5-9 Urine Urobilinogen Negative Negative Urine Ketones Negative Negative Urine Protein Negative Negative Urine Leukocytes Trace Negative Urine Blood Negative Negative * * Negative 9 Urine Nitrite Negative Negative Urine Bilirubin Negative Negative Urine Glucose Negative Negative Urine White Blood Cell Trace(0-5/hpf) Absent Urine Red Blood Cell Absent Absent Urine Bacteria Absent Absent Urine Squamous Epithelial Cell Present Absent Comp Metabolic Panel 02/16/2017 Sodium 139 mmol/L 133-145 Potassium 4.5 mmol/L 3.5-5.0 Chloride 104 mmol/L 101-111 Co2 Carbon Dioxide 28 mmol/L 22-32 Anion Gap 7 mmol/L 2-11 Glucose 98 mg/dL 70-100 Blood Urea Nitrogen 15 mg/dL 6-24 Creatinine 0.83 mg/dL 0.51-0.95 BUN/Creatinine Ratio 18.1 8-20 Calcium 9.8 mg/dL 8.6-10.3 Total Protein 7.2 g/dL 6.4-8.9 Albumin 4.7 g/dL 3.2-5.2 Globulin 2.5 g/dL 2-4 Albumin/Globulin Ratio 1.9 1-3 Total Bilirubin 0.40 mg/dL 0.2-1.0 Alkaline Phosphatase 78 U/L 34-104 Alt 23 U/L 7-52 Ast 19 U/L 13-39 Egfr Non- 74.0 >60 Egfr 95.2 >60 10 Laboratory test 02/16/2017 Vitamin B12 231 pg/mL 180-914 11 finding Urine Culture And 02/16/2017 Urine Culture SEE RESULT 12 Sensitivities BELOW Laboratory test 02/16/2017 Renin 2.4 ng/mL/h 13 finding Metanephrines Plasma 02/16/2017 Plasma Free 0.78 nmol/L <0.90 Normetanephrine Plasma Free Metanephrine 0.28 nmol/L <0.50 14 Laboratory test finding 02/16/2017 Serotonin Serum 198 ng/mL <=230 15 Inr/Protime 02/07/2017 Inr 0.81 Low 0.89-1.11 Laboratory test finding 02/07/2017 Partial Thrombo Time 27.9 seconds 26.0 -36.3 PTT D Dimer Quantitative < 200 ng/mL Less Than 230 16 Troponin-I (TnI) 0.00 ng/mL <0.04 17 CKMB 02/07/2017 CKMB ng/mL 1.5 ng/mL 0.6-6.3 Comp Metabolic Panel 02/07/2017 Sodium 136 mmol/L 133-145 Chloride 104 mmol/L 101-111 Co2 Carbon Dioxide 25 mmol/L 22-32 Glucose 103 mg/dL High 70-100 Blood Urea Nitrogen 21 mg/dL 6-24 Creatinine 0.82 mg/dL 0.51-0.95 BUN/Creatinine Ratio 25.6 High 8-20 Calcium 9.8 mg/dL 8.6-10.3 Total Protein 7.9 g/dL 6.4-8.9 Albumin 4.9 g/dL 3.2-5.2 Globulin 3.0 g/dL 2-4 Albumin/Globulin Ratio 1.6 1-3 Total Bilirubin 0.30 mg/dL 0.2-1.0 Alkaline Phosphatase 73 U/L 34-104 Alt 20 U/L 7-52 Egfr Non- 75.1 >60 Egfr 96.5 >60 18 Potassium TNP mmol/L 3.5-5.0 19 Anion Gap TNP mmol/L 2-11 Ast TNP U/L 13-39 20 Laboratory test finding 02/07/2017 Lipase 19 U/L 11.0-82.0 Creatine Kinase(CK) 95 U/L 10-223 C Reactive Protein < 1.00 mg/L < 5.00 21 Magnesium TNP mg/dL 1.9-2.7 22 HCG 6.29 mIU/mL 23 TSH (Thyroid Stim Horm) 2.67 mcIU/mL 0.34-5.60 Urinalysis Profile 02/07/2017 Urine Color Yellow Urine Appearance Clear Urine Specific Bennet 1.006 Low 1.010-1.030 Urine pH 5.0 5-9 Urine Urobilinogen Negative Negative Urine Ketones Negative Negative Urine Protein Negative Negative Urine Leukocytes Negative Negative Urine Blood Negative Negative Urine Nitrite Negative Negative Urine Bilirubin Negative Negative Urine Glucose Negative Negative Laboratory test finding 02/07/2017 Lactic Acid 0.7 mmol/L 0.5-2.0 24 CBC Auto Diff 02/07/2017 White Blood Count 5.8 10^3/uL 3.5-10.8 Red Blood Count 5.16 10^6/uL 4.0-5.4 Hemoglobin 15.4 g/dL 12.0-16.0 Hematocrit 46 % 35-47 Mean Corpuscular Volume 89 fL 80-97 Mean Corpuscular Hemoglobin 30 pg 27-31 Mean Corpuscular HGB Conc 34 g/dL 31-36 Red Cell Distribution Width 13 % 10.5-15 Platelet Count 182 10^3/uL 150-450 Mean Platelet Volume 9 um3 7.4-10.4 Abs Neutrophils 3.9 10^3/uL 1.5-7.7 Abs Lymphocytes 1.4 10^3/uL 1.0-4.8 Abs Monocytes 0.4 10^3/uL 0-0.8 Abs Eosinophils 0.1 10^3/uL 0-0.6 Abs Basophils 0 10^3/uL 0-0.2 Abs Nucleated RBC 0.01 10^3/uL Granulocyte % 66.6 % 38-83 Lymphocyte % 24.0 % Low 25-47 Monocyte % 6.9 % 1-9 Eosinophil % 1.8 % 0-6 Basophil % 0.7 % 0-2 Nucleated Red Blood Cells % 0.1 Laboratory test finding 02/07/2017 Potassium Redraw 3.8 mmol/L 3.5-5.0 Ast Redraw 16 U/L 13-39 Laboratory test 02/07/2017 Troponin-I (TnI) 0.00 ng/mL <0.04 25 finding Laboratory test 07/18/2016 Surgical Pathology SEE RESULT BELOW 26, 27 finding Laboratory test 12/30/2015 Cytology SEE RESULT BELOW 28 finding Laboratory test 11/13/2015 Lyme Disease Negative Negative 29 finding Serology Daphne (Antinuclear Antibodies) Negative Negative Rheumatoid Factor <15 IU/mL <15 30 Erythrocyte Sed Rate 10 mm/Hr 0-14 CBC Auto Diff 11/13/2015 White Blood Count 6.8 10^3/uL 3.5-10.8 Red Blood Count 4.79 10^6/uL 4.0-5.4 Hemoglobin 14.8 g/dL 12.0-16.0 Hematocrit 44 % 35-47 Mean Corpuscular Volume 91 fL 80-97 Mean Corpuscular Hemoglobin 31 pg 27-31 Mean Corpuscular HGB Conc 34 g/dL 31-36 Red Cell Distribution Width 13 % 10.5-15 Platelet Count 220 10^3/uL 150-450 Mean Platelet Volume 9 um3 7.4-10.4 Abs Neutrophils 4.7 10^3/uL 1.5-7.7 Abs Lymphocytes 1.7 10^3/uL 1.0-4.8 Abs Monocytes 0.4 10^3/uL 0-0.8 Abs Eosinophils 0.1 10^3/uL 0-0.6 Abs Basophils 0 10^3/uL 0-0.2 Abs Nucleated RBC 0 10^3/uL Granulocyte % 68.7 % 38-83 Lymphocyte % 25.0 % 25-47 Monocyte % 5.1 % 1-9 Eosinophil % 0.9 % 0-6 Basophil % 0.3 % 0-2 Nucleated Red Blood Cells % 0 Comp Metabolic Panel 07/22/2014 Sodium 140 mmol/L 133-145 31 Potassium 4.6 mmol/L 3.7-5.6 31 Chloride 104 mmol/L 101-111 31 Co2 Carbon Dioxide 30 mmol/L 22-32 31 Anion Gap 6 mmol/L 2-11 31 Glucose 88 mg/dL 70-100 31 Blood Urea Nitrogen 15 mg/dL 6-24 31 Creatinine 0.88 mg/dL 0.51-0.95 31 BUN/Creatinine Ratio 17.0 8-20 31 Calcium 9.7 mg/dL 8.6-10.3 31 Total Protein 7.2 g/dL 6.4-8.9 31 Albumin 4.7 g/dL 3.2-5.2 31 Globulin 2.5 g/dL 2-4 31 Albumin/Globulin Ratio 1.9 1-3 31 Total Bilirubin 0.40 mg/dL 0.2-1.0 31 Alkaline Phosphatase 67 U/L 34-104 31 Alt 26 U/L 7-52 31 Ast 24 U/L 13-39 31 Egfr Non- 70.1 >60 31 Egfr 90.2 >60 31, 32 Lipid Profile (Trig/Chol/HDL) 07/22/2014 Triglycerides 96 mg/dL 31, 33 Cholesterol 192 mg/dL 31, 34 HDL Cholesterol 73.4 mg/dL 31, 35 LDL Cholesterol 99 mg/dL 31, 36 CBC With Manual Diff 07/22/2014 White Blood Count 4.4 10^3/uL Low 4.8- 10.8 31 Red Blood Count 4.83 10^6/uL 4.0-5.4 31 Hemoglobin 14.7 g/dL 12.0-16.0 31 Hematocrit 44 % 35-47 31 Mean Corpuscular Volume 91 fL 80-97 31 Mean Corpuscular Hemoglobin 31 pg 27-31 31 Mean Corpuscular HGB Conc 34 g/dL 31-36 31 Red Cell Distribution Width 13 % 10.5-15 31 Platelet Count 190 10^3/uL 150-450 31 Mean Platelet Volume 8 um3 7.4-10.4 31 Abs Neutrophils 2.4 10^3/uL 1.5-7.7 31 Abs Lymphocytes 1.6 10^3/uL 1.0-4.8 31 Abs Monocytes 0.3 10^3/uL 0-0.8 31 Abs Eosinophils 0.1 10^3/uL 0-0.6 31 Abs Basophils 0 10^3/uL 0-0.2 31 Abs Nucleated RBC 0 10^3/uL 31 Neutrophil % 51 % 38-83 31 Lymphocytes % 39 % 25-47 31 Monocytes % 7 % 0-13 31 Eosinophils % 2 % 0-6 31 Reactive Lymph % 1 % 0-6 31 RBC Morphology Normal Normal 31 Laboratory test 07/22/2014 TSH (Thyroid 2.98 IU/mL 0.34-5.60 31, 37 finding Stimulating Horm) Laboratory test 07/29/2013 Cytology RUN DATE: 38 finding 07/30/ <SEE NOTE> 1 Low risk: <1.00 Average risk: 1.00-3.00 High risk: >3.00 2 AM 8.7-22.4 PM <10 3 Serologic response to B. burgdorferi infection is not detected, but cannot rule out early infection during which low or undetectable antibody levels to B. burgdorferi may be present. If clinically indicated, a new serum specimen should be submitted in 7-14 days. Test Performed by: [address] [id number] 4 Desirable <150 Borderline high 150-199 High 200-499 Very High >500 5 Desirable <200 Borderline high 200-239 High >239 6 Low <40 Desirable: 40-60 High: >60 7 Desirable: <100 mg/dL Near Optimal: 100-129 mg/dL Borderline High: 130-159 mg/dL High: 160-189 mg/dL Very High: >189 mg/dL 8 Because ethnic data is not always readily available, this report includes an eGFR for both -Americans and non- Americans. The National Kidney Disease Education Program (NKDEP) does not endorse the use of the MDRD equation for patients that are not between the ages of 18 and 70, are , have extremes of body size, muscle mass, or nutritional status, or are non- or non-. According to the National Kidney Foundation, irrespective of diagnosis, the stage of the disease is based on the level of kidney function: Stage Description GFR(mL/min/1.73 m(2)) 1 Kidney damage with normal or decreased GFR 90 2 Kidney damage with mild decrease in GFR 60-89 3 Moderate decrease in GFR 30-59 4 Severe decrease in GFR 15-29 5 Kidney failure <15 (or dialysis) 9 *Ascorbic acid is present which may interfere with detection of blood. 10 Because ethnic data is not always readily available, this report includes an eGFR for both -Americans and non- Americans. The National Kidney Disease Education Program (NKDEP) does not endorse the use of the MDRD equation for patients that are not between the ages of 18 and 70, are , have extremes of body size, muscle mass, or nutritional status, or are non- or non-. According to the National Kidney Foundation, irrespective of diagnosis, the stage of the disease is based on the level of kidney function: Stage Description GFR(mL/min/1.73 m(2)) 1 Kidney damage with normal or decreased GFR 90 2 Kidney damage with mild decrease in GFR 60-89 3 Moderate decrease in GFR 30-59 4 Severe decrease in GFR 15-29 5 Kidney failure <15 (or dialysis) 11 Normal Range 180 to 914 Indeterminate Range 145 to 180 Deficient Range <145 12 SEE RESULT BELOW Name: ERWIN BUSTOS : [address]: Saida Ayala MD Acct: [id number] Unit: [id number] AGE: 46 Location: LAB Re02/16/17 SEX: F Status: REG REF SPEC: [id number] MAYCOL: 02/16/[address]: Saida Ayala MD REQ: [id number] RECD: 04/27/17-0956 STATUS: COMP _ SOURCE: URINE SPDC: ORDERED: Urine Culture Procedure Result Reported Site Urine Culture Final 02/17/17- 1255 ML No Growth (<1,000 CFU/mL) * ML - MAIN LAB ([facility]) . END OF REPORT * ML=Testing performed at Main Lab DEPARTMENT OF PATHOLOGY, [address] [place] [address] Brandt Rodriguez M.D. Director [facility] # [id number] 13 REFERENCE VALUE (Peripheral vein specimen) Na-deplete, upright: Mean: 5.9 Range: 2.9-10.8 Na-replete, upright: Mean: 1.0 Range: < or=0.6-3.0 ADDITIONAL INFORMATION Testing performed by Liquid Chromatography-Tandem Mass Spectrometry (LC-MS/MS). This test was developed and its performance characteristics determined by [facility] in a manner consistent with CLIA requirements. This test has not been cleared or approved by the U.S. Food and Drug Administration. Test Performed by: [facility] - [address] [id number] 14 ADDITIONAL INFORMATION This test was developed and its performance characteristics determined by [facility] in a manner consistent with CLIA requirements. This test has not been cleared or approved by the U.S. Food and Drug Administration. Test Performed by: [facility] - [address] [address] 15 ADDITIONAL INFORMATION This test was developed and its performance characteristics determined by [facility] in a manner consistent with CLIA requirements. This test has not been cleared or approved by the U.S. Food and Drug Administration. Test Performed by: [facility] - [address] [address] 16 Please note: The following may produce a false positive D Dimer test: - Rheumatoid factor greater than 60 IU/ml - Plasma hemoglobin greater than 0.05 gm/dl - Bilirubin greater than 50 mg/dl - Lipids greater than 1000 mg/dl - FDP greater than 20 ug/ml 17 99th percentile=0.04 ng/mL Troponin results at [facility] and [facility] are not interchangeable. 18 Because ethnic data is not always readily available, this report includes an eGFR for both -Americans and non- Americans. The National Kidney Disease Education Program (NKDEP) does not endorse the use of the MDRD equation for patients that are not between the ages of 18 and 70, are , have extremes of body size, muscle mass, or nutritional status, or are non- or non-. According to the National Kidney Foundation, irrespective of diagnosis, the stage of the disease is based on the level of kidney function: Stage Description GFR(mL/min/1.73 m(2)) 1 Kidney damage with normal or decreased GFR 90 2 Kidney damage with mild decrease in GFR 60-89 3 Moderate decrease in GFR 30-59 4 Severe decrease in GFR 15-29 5 Kidney failure <15 (or dialysis) 19 Unable to report test result due to hemolysis. 20 Unable to report test result due to hemolysis. 21 Acute inflammation: >10.00 22 Unable to report test result due to hemolysis. 23 <5.0 Negative 5.0 - 25.0 Indeterminate (Repeat testing recommended after 72 hours) >25.0 Positive Perimenopausal women can display HCG levels of up to 20 mIU/mL 24 [facility] Severe Sepsis and Septic Shock Management Bundle Measure requires all lactic acids initially measuring >2.0 mmol/L be repeated. 25 99th percentile=0.04 ng/mL Troponin results at [facility] and [facility] are not interchangeable. 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 -- Fragments of fibrocartilage with myxoid degeneration. PRE-OPERATIVE DIAGNOSIS Left knee patellofemoral syndrome and arthritis GROSS DESCRIPTION The specimen is received in formalin labeled, Shavings Left Knee, and consists of a 2.0 x 1.5 x 0.2 cm aggregate of yellow white fibrocartilaginous tissue admixed with yellow lobulated adipose tissue. The specimen is filtered and entirely submitted in one cassette. Signed (signature on file) Brandt Rodriguez MD 1627 END OF REPORT * ML=Testing performed at Main Lab DEPARTMENT OF PATHOLOGY, [address] [place] [address] Brandt Rodriguez M.D. Director [facility] # [id number] 28 SEE RESULT BELOW Name: ERWIN BUSTOS : [address]: Saida Ayala MD Acct: [id number] Unit: [id number] AGE: 45 Location: [facility] Re12/30/15 SEX: F Status: REG REF SPEC: [id number] MAYCOL: 12/30/15-[address] [facility] [address]: Saida Ayala MD REQ: [id number] RECD: 12/30/15172 STATUS: SOUT _ ORDERED: IMAGE ANALYSIS FINAL DIAGNOSIS Negative for Intraepithelial lesion or Malignancy A. Ectocervical/Endocervical Specimen Adequacy: Satisfactory of evaluation Transformation zone component identified Predominance of white blood cells Patient Information: HPV: Thin Layer Pap Test w/reflex to high risk HPV RNA testing when ASCUS Actual Specimen Date: 12/30/15 LMP If Unknown: 2013 Post Menopausal?: Y Signed (signature on file) NAOMI Hernández(ASCP) 12/30 1437 This Pap test was evaluated with the assistance of the [employer] Test Imaging System. Due to cytologic findings at the protection engineer microscope, comprehensive manual rescreening by a Box Printer may be required. The Pap Smear is a screening test designed to aid in the detection of premalignant and malignant conditions of the uterine cervix. It is not a diagnostic procedure and should not be used as the sole means of detecting cervical cancer. Both false- positive and false- negative reports do occur. Depending on your risk status, a Pap smear should be obtained and evaluated every 1-3 years. END OF REPORT * ML=Testing performed at Main [facility] DEPARTMENT OF PATHOLOGY, [address] [place] [address] Brandt Rodriguez M.D. Director [facility] # [id number] 29 Serologic response to B. burgdorferi infection is not detected, but cannot rule out early infection during which low or undetectable antibody levels to B. burgdorferi may be present. If clinically indicated, a new serum specimen should be submitted in 7-14 days. Test Performed by: [place] [address] Platen Drier Operator: Aryan Guy II, M.D., Ph.D. 30 Test Performed by: [place] [id number] Platen Drier Operator: Aryan Guy II, M.D., Ph.D. 31 FASTING~FASTING, NOTHING TO EAT OR DRINK AFTER MIDNIGHT THE NIGHT~BEFORE~ WALKINS FROM 7:30-9AM EV 32 Because ethnic data is not always readily available, this report includes an eGFR for both -Americans and non- Americans. The National Kidney Disease Education Program (NKDEP) does not endorse the use of the MDRD equation for patients that are not between the ages of 18 and 70, are , have extremes of body size, muscle mass, or nutritional status, or are non- or non-. According to the National Kidney Foundation, irrespective of diagnosis, the stage of the disease is based on the level of kidney function: Stage Description GFR(mL/min/1.73 m(2)) 1 Kidney damage with normal or decreased GFR 90 2 Kidney damage with mild decrease in GFR 60-89 3 Moderate decrease in GFR 30-59 4 Severe decrease in GFR 15-29 5 Kidney failure <15 (or dialysis) 33 Desirable <150 Borderline high 150-199 High 200-499 Very High >500 34 Desirable <200 Borderline high 200-239 High >239 35 Low <40 Desirable: 40-60 High: >60 36 Desirable <100 Near Optimal 100-129 Borderline high 130-159 High 160-189 Very High >189 37 FASTING FASTING, NOTHING TO EAT OR DRINK AFTER MIDNIGHT THE NIGHT BEFORE WALKINS FROM 7:30-9AM EVERY WEEKDAY FASTING, NOTHING TO EAT OR DRINK AFTER MIDNIGHT THE NIGHT 38 RUN DATE: 07/30/13 [facility] LAB LIVE PAGE 1 RUN TIME: [address] [place] [address] Specimen Inquiry Name: JAX SLAUGHTERERWIN : [address]: Saida Ayala MD Acct: [id number] Unit: [id number] AGE: 42 Location: [facility] Re07/29/13 SEX: F Status: REG REF SPEC: [id number] MAYCOL: 07/29/13-[address] [facility] [address]: Saida Ayala MD REQ: [id number] RECD: 07/29/13-5700 STATUS: SOUT _ ORDERED: IMAGE ANALYSIS FINAL DIAGNOSIS Negative for Intraepithelial lesion or Malignancy A. Ectocervical/Endocervical Specimen Adequacy: Satisfactory of evaluation Transformation zone component identified Patient Information: HPV: Thin Layer Pap Test w/reflex to high risk HPV DNA testing when ASCUS Actual Specimen Date: 07/29/13 Last Menstrual Date: 07/22/13 IUD: N Lesion, grossly demonstrate: N ?: N Other Pertinent History: Cervical nodule at the OS Signed (signature on file) NAOMI Taylor (ASCP) 07/30/13 1216 This Pap test was evaluated with the assistance of the ThinPrep Test Imaging System. Due to cytologic findings at the protection engineer microscope, comprehensive manual rescreening by a Box Printer may be required. The Pap Smear is a screening test designed to aid in the detection of premalignant and malignant conditions of the uterine cervix. It is not a diagnostic procedure and should not be used as the sole means of detecting cervical cancer. Both false- positive and false- negative reports do occur. Depending on your risk status, a Pap smear shoudl be obtained and evaluated every 1-3 years. END OF REPORT * ML=Testing performed at Main Lab DEPARTMENT OF PATHOLOGY, [address] [place] [address] Brandt Rodriguez M.D. Director [facility] Permit #[id number] Procedures Date CPT Code Description Status Comment 12/21/201739096 Inject/Drain Joint/Bursa Major Completed W/O US 12/14/201712903 Inject/Drain Joint/Bursa Major Completed W/O US 12/07/201727312 Inject/Drain Joint/Bursa Major Completed W/O US 06/27/201776025 Inject/Drain Joint/Bursa Major Completed W/O US 06/20/201738284 Inject/Drain Joint/Bursa Major Completed W/O US 06/13/201713913 Inject/Drain Joint/Bursa Major Completed W/O US 04/14/2017 10773 ECHO Transthoracic, Real-Time Completed 2D With Doppler And Color Flow 04/04/2017 47382 Amb.BP Monitor/Phys Completed Interp&Report 02/28/2017 99949 EKG Tracing & Interpretation Completed 11/25/201690394 Inject/Drain Joint/Bursa Major Completed W/O US 11/18/201693882 Inject/Drain Joint/Bursa Major Completed W/O US 11/11/201693689 Inject/Drain Joint/Bursa Major Completed W/O US 07/18/2016 32276 Abrasion Arthroplasty Multiple Completed Drilling Or Microfracture 07/18/2016 96997 Abrasion Arthroplasty Multiple Completed Drilling Or Microfracture 12/04/2015 65379 Inject/Drain Joint/Bursa Major Completed W/O US 08/12/2014 25838 Rad Exam; Ankle Limited Completed 08/12/2014 66876 Rad Exam; Ankle Limited Completed 03/10/2014 10497 Xray Knee 3 Views Completed 03/10/2014 93494 Xray Knee 3 Views Completed 12/23/2013 72071 ECHO Transthoracic, Real-Time Completed 2D With Doppler And Color Flow 11/26/2013 97029 EKG Tracing & Interpretation Completed 08/12/2013 Mammogram Completed 09/21/29 Colonoscopy Completed benign polyp removal repeat colonscopy 34 nl , then at age 40 nl ( all done in [place]) Encounters Type Date Location Provider CPT E/M Dx Office Visit 11/10/2017 [facility] [place] [address] M17.0 10:45a [facility] Office Visit 05/25/2017 [facility] [place] [address] M17.0 8:45a [facility] Office Visit 05/03/2017 [facility] Saida Ayala M.D. 65333 K92.1 12:10p - [place] R03.0 Office Visit 04/11/2017 12:10p [facility] Saida Ayala M.D. 25348 R03.0 - [place] R22.40 K58.0 Office Visit 03/28/2017 9:40a [facility] Johnny Mckenna M.D. 36209 R03.0 M79.605 R23.3 R00.2 I34.0 F43.10 Z87.59 F41.9 Office Visit 03/27/2017 4:00p [facility] [place] [address] M79.605 [place] Office Visit 03/10/2017 9:45a [facility] [place] [address] M17.0 [facility] R22.41 Office Visit 02/24/2017 10:30a [facility] [place] [address] M17.0 [facility] M25.561 R22.41 Office Visit 02/20/2017 7:30a [facility] - Saida Ayala M.D. 16922 I10 [place] F43.29 Z71.3 Office Visit 02/09/2017 10:10a [facility] - Saida Ayala M.D. 91766 I10 [place] Z71.3 F41.9 Office Visit 01/17/2017 1:20p [facility] Jailene Shelby N.PFani 36877 K21.9 - [place] R10.11 Office Visit 01/06/2017 10:00a [facility] Day Elkins 88887 H92.01 - Dario Salazar Office Visit 03/18/2016 10:30a [place] [address] M22.2x2 Of [facility] M22.2x1 M22.41 M22.42 Office Visit 02/09/2016 9:40a [facility] Zulay Parker, 99018 M22.2x2 Of [facility] ANP-C M22.2x1 Office Visit 01/22/2016 8:30a [facility] Ar[place] M.D. 95845 M22.2x2 [facility] Office Visit 12/30/2015 10:10a [facility] Saida Ayala, 67029 Z00.00 - Dario Salazar Z12.31 Z12.4 I10 Z13.1 Office Visit 12/28/2015 1:30p [facility] Ar[facility] M.D. 25830 M22.2x1 [facility] M25.462 M25.552 Office Visit 12/24/2015 12:10p [facility] Cuauhtemoc Rider, 83161 R00.2 - Cesar Agustin M.D.,FACP R51 Office Visit 12/04/2015 11:15a [facility] Zulay Parker, 54392 M22.2x1 Of [facility] ANP-C M22.2x2 Office Visit 11/30/2015 10:40a [facility] [place] [address] B37.0 Office Visit 11/12/2015 1:40p [facility] Saida Ayala, 14593 M25.559 - Dario Salazar M25.50 B34.9 M79.645 Office Visit 01/30/2015 2:00p [facility] Bradly Ar, MAYLIN [address] 461.9 - [place] Office Visit 10/29/2014 3:00p [facility] Ciaran Santos, 26695 718.87 CEfrem Salazar 727.06 Office Visit 08/12/2014 2:30p [facility] 69732 718.87 CEfrem Salazar Office Visit 04/21/2014 10:00a [facility] Jailene Shelby N.P. 55158 461.9 - [place] 346.90 Office Visit 03/10/2014 11:00a [facility] M.D. 38223 718.87 C.MHugh 719.46 715.36 Office Visit 11/26/2013 1:40p [facility] Johnny Mckenna M.D. 79854 401.9 785.1 300.00 Office Visit 07/29/2013 9:10a [facility] Saida Ayala, 21374 V72.31 - Dario Salazar V76.2 V76.10 401.9 V77.91 Office Visit 04/11/2013 9:00a [facility] William Pagan, 08003 388.71 - Dario Salazar Office Visit 07/06/2012 11:00a [facility] Luz Alexis, 15330 477.9 - [place] N.P. 462 V77.91 V77.1 Office Visit 12/06/2011 11:00a [facility] Saida Ayala, 14828 719.86 - Dario Salazar Plan of Care Future Appointment(s):07/17/2018 1:45 pm - Syed Aburto MD at [facility]07/10/2018 9:00 am - Syed Aburto MD at [facility]12/21/2017 - Syed Aburto, MDM17.0 Bilateral primary osteoarthritis of kneeFollow up:Follow up: as needed
--- NOTE | 2018-07-05 19:04 | UC ---
Skin Complaint HPI - HPI Summary HPI Summary: 47 yo female presents with right leg wound. She tells me that about a week ago she noticed a bump on her right calf that was a little red. Since that time has progressed to form a large "pimple" with surrounding redness and warmth. She is concerned that it is infected. She also mentions that over the last 2 days she has had watery diarrhea. Reports being on an antibiotic a few weeks ago. No new foods. Denies fever, chills, abdominal pain, n/v. - History of Current Complaint Time Seen by Provider: 07/05/18 18:50 Stated Complaint: SOFT TISSUE COMPLAINT LEG Hx Obtained From: Patient Onset/Duration: Gradual Onset Onset Severity: Mild Current Severity: Mild Pain Intensity: 4 Pain Scale Used: 0-10 Numeric - Allergy/Home Medications Allergies/Adverse Reactions: Allergies Allergy/AdvReac Type Severity Reaction Status Date / Time MS Cheese [Cheese] Allergy MIGRAINES Verified 07/05/18 19:20 MS Ibuprofen [Ibuprofen] Allergy Nausea Verified 07/05/18 19:20 ALL BLOOD PRESSURE MEDICATION Allergy Unknown Uncoded 03/01/17 15:53 Reaction Details ARTIFICIAL HORMONES Allergy MIGRAINES Uncoded 03/01/17 15:53 BLOOD PRESSURE MED Allergy Palpitation Uncoded 03/01/17 15:53 s CHEMICALS Allergy Unknown Uncoded 03/01/17 15:53 Reaction Details Review of Systems Constitutional: Negative Skin: Other - Wound right leg Respiratory: Negative Cardiovascular: Negative Musculoskeletal: Negative Neurological: Negative Psychological: Negative All Other Systems Reviewed And Are Negative: Yes PMH/Surg Hx/FS Hx/Imm Hx - Additional Past Medical History Additional PMH: PTSD Anxiety HTN Other History Of: Negative For: HIV, Hepatitis B, Hepatitis C, Anticoagulant Therapy - Surgical History Surgical History: Yes Surgery Procedure, Year, and Place: LEFT KNEE SURGERY 06/2016 - Family History Known Family History: Positive: Hypertension, Renal Disease - Mother has kidney disease but also Lupus Family History: NO FHX OF BREAST CA - Social History Lives: With Family Alcohol Use: None Substance Use Type: None Smoking Status (MU): Former Smoker Amount Used/How Often: ? PPD X 9 YEARS When Did the Patient Quit Smoking/Using Tobacco: 17 YEARS AGO Physical Exam - Summary Physical Exam Summary: GENERAL: NAD. WDWN. No pain distress. SKIN: Right leg: Calf with 1.0cm abscess with mild drainage/exudate. Surrounding 2.0cm diameter of mild warmth and erythema. Moderate TTP. NECK: Supple. Nontender. No lymphadenopathy. CHEST: CTAB. No r/r/w. No accessory muscle use. Breathing comfortably and in no distress. CV: RRR. Without m/r/g. Pulses intact. Cap refill <2seconds ABDOMEN: Soft. NTTP. No distention or guarding. No CVA tenderness. Bowel sounds present NEURO: Alert. PSYCH: Age appropriate behavior. Triage Information Reviewed: Yes Vital Signs: Vital Signs: Temp Pulse Resp BP Pulse Ox 98.6 F 80 18 150/80 97 07/05/18 19:08 07/05/18 19:08 07/05/18 19:08 07/05/18 19:08 07/05/18 19:08 Vital Signs Reviewed: Yes Course/Dx - Course Course Of Treatment: Wound culture obtained. Will send for stool culture with suspicion of c. diff given her watery diarrhea and recent anbx use. Rx for bactrim for abscess of right leg. - Diagnoses Provider Diagnoses: Diarrhea. Abscess right leg Discharge - Sign-Out/Discharge Documenting (check all that apply): Patient Departure All imaging exams completed and their final reports reviewed: No Studies - Discharge Plan Condition: Stable Disposition: HOME Prescriptions: Sulfamethox/Trimethoprim DS* [Bactrim DS 800/160 TAB*] 1 tab PO BID #14 tab Patient Education Materials: Abscess (ED) Referrals: Saida Ayala MD [Primary Care Provider] - Additional Instructions: If you develop a fever, shortness of breath, chest pain, new or worsening symptoms - please call your PCP or go to the ED. - Billing Disposition and Condition Condition: STABLE Disposition: Home
[2018-07-05 19:20] VITALS: BP 150/80
--- NOTE | 2018-07-08 17:16 | UC ---
- Progress Note Progress Note: 07/08/2018 Wound culture final no growth, negative. Pt w/ left lower leg abscess, Rx Bactrim PO No change Lia Guallpa PA-C Discharge - Sign-Out/Discharge Documenting (check all that apply): Patient Departure - D/c home All imaging exams completed and their final reports reviewed: No Studies - Discharge Plan Condition: Stable Disposition: HOME Prescriptions: Sulfamethox/Trimethoprim DS* [Bactrim DS 800/160 TAB*] 1 tab PO BID #14 tab Patient Education Materials: Abscess (ED) Referrals: Saida Ayala MD [Primary Care Provider] - Additional Instructions: If you develop a fever, shortness of breath, chest pain, new or worsening symptoms - please call your PCP or go to the ED. - Billing Disposition and Condition Condition: STABLE Disposition: Home
== END 2018-07-05 19:35 | disposition home or self-care (01) ==
LOC: UCEAST 18:46
DX: L02.415 Cutaneous abscess of right lower limb (principal); R19.7 Diarrhea, unspecified; Z87.891 Personal history of nicotine dependence
CPT/HCPCS: 87070; 87205; 99212; G0463

== ENCOUNTER 2019-10-01 09:54 | Emergency (ER) | payer BC ==
[2019-10-01 10:18] VITALS: BP 00/00
--- NOTE | 2019-10-01 11:30 | UC ---
UC General HPI - HPI Summary HPI Summary: 48 yo female c/o last couple weeks of sinus congestion / uri sx. No fever / chills. Has been working very hard with work related issues. Yesterday and today + c/o urinary freq / urgency / hematuria / dysuria. No back pain. No rash. No n/v/d. Pt is post menopausal (apprx 4 years). - History of Current Complaint Chief Complaint: [facility]CGU Stated Complaint: PERSONAL Time Seen by Provider: 10/01/19 11:00 Hx Obtained From: Patient Pain Intensity: 5 - Allergy/Home Medications Allergies/Adverse Reactions: Allergies Allergy/AdvReac Type Severity Reaction Status Date / Time cheese Allergy Intermediate Headache Verified 10/01/19 10:18 ibuprofen Allergy Intermediate GI Upset Verified 10/01/19 10:18 ALL BLOOD PRESSURE MEDICATION Allergy Unknown Uncoded 10/01/19 10:18 Reaction Details ARTIFICIAL HORMONES Allergy MIGRAINES Uncoded 10/01/19 10:18 CHEMICALS Allergy Unknown Uncoded 10/01/19 10:18 Reaction Details PMH/Surg Hx/FS Hx/Imm Hx Previously Healthy: Yes Other History Of: Negative For: HIV, Hepatitis B, Hepatitis C, Anticoagulant Therapy - Surgical History Surgical History: Yes Surgery Procedure, Year, and Place: LEFT KNEE SURGERY 06/2016 - Family History Known Family History: Positive: Hypertension, Renal Disease - Mother has kidney disease but also Lupus Family History: NO FHX OF BREAST CA - Social History Alcohol Use: None Substance Use Type: None Smoking Status (MU): Former Smoker Amount Used/How Often: ? PPD X 9 YEARS When Did the Patient Quit Smoking/Using Tobacco: 17 YEARS AGO Review of Systems All Other Systems Reviewed And Are Negative: Yes Constitutional: Positive: Other - see hpi Skin: Positive: Negative Eyes: Positive: Negative ENT: Positive: Nasal Discharge, Sinus Congestion Respiratory: Positive: Cough - see hpi Cardiovascular: Positive: Negative Gastrointestinal: Positive: Other Physical Exam Triage Information Reviewed: Yes Appearance: Well-Appearing - sitting up, conversing easily looks tired, but nad , Well-Nourished Vital Signs: Initial Vital Signs Temp 98.1 F 10/01/19 10:14 Pulse 67 10/01/19 10:14 Resp 17 10/01/19 10:14 BP 00/00 10/01/19 10:14 Pulse Ox 100 10/01/19 10:14 Vital Signs Reviewed: Yes Eye Exam: Normal ENT Exam: Normal - + sinus congestion ENT: Positive: Pharyngeal erythema - mild post redness, Other - + cerumen impaction Neck exam: Normal Neck: Positive: Supple, Nontender, No Lymphadenopathy Respiratory Exam: Normal Respiratory: Positive: Chest non-tender, Lungs clear, Normal breath sounds, No respiratory distress, No accessory muscle use Cardiovascular Exam: Normal Cardiovascular: Positive: RRR, No Murmur, Pulses Normal, Brisk Capillary Refill Abdominal Exam: Other - + bs, soft nd. no cvat Musculoskeletal Exam: Normal - gait steady, moves x 4 ext's Neurological Exam: Normal - grossly nonfocal Psychological Exam: Normal - nad Skin Exam: Normal - no visible or reported rash, nondiaphoretic. Course/Dx - Course Course Of Treatment: Reviewed ancillaries Reviewed coa / tx plan. Questions as posed answered to the best of my ability. - Diagnoses Provider Diagnosis: UTI (urinary tract infection), Cerumen impaction Discharge ED - Sign-Out/Discharge Documenting (check all that apply): Patient Departure All imaging exams completed and their final reports reviewed: No Studies - Discharge Plan Condition: Stable Disposition: HOME Prescriptions: Ciprofloxacin TAB* [Cipro 500 MG TAB*] 500 mg PO BID #14 tab Phenazopyridine 200 mg (NF) [Pyridium 200 MG tab *] 200 mg PO TID PRN #12 tab PRN Reason: Pain - Moderate Patient Education Materials: Urinary Tract Infection in Women (ED), Sinusitis ( ED), Cerumen Impaction (ED), Hematuria (ED) Referrals: Rhianna Arteaga MD [Primary Care Provider] - Additional Instructions: Hydrate. Please seek medical attention for worse or new problems. Please have your urine rechecked by your doctor (and blood pressure) in the next month, if possible. To make sure that the blood has resolved. - Billing Disposition and Condition Condition: STABLE Disposition: Home
== END 2019-10-01 12:00 | disposition home or self-care (01) ==
LOC: UCEAST 09:54
DX: N39.0 Urinary tract infection, site not specified (principal); R31.9 Hematuria, unspecified; H61.20 Impacted cerumen, unspecified ear; R09.81 Nasal congestion; Z88.6 Allergy status to analgesic agent; Z88.8 Allergy status to other drugs, medicaments and biological substances; Z91.018 Allergy to other foods; Z91.09 Other allergy status, other than to drugs and biological substances; Z87.891 Personal history of nicotine dependence
CPT/HCPCS: 81003; 87077; 87086; 87186; 99213; G0463